=== PATIENT | female | born 1970 | race Caucasian/White ===

== ENCOUNTER 2017-08-16 00:29 | Inpatient (IN) | payer BC ==
[2017-08-16] MEDS ORDERED: Sodium Chloride 0.9% 10 ML Syringe FLUSH PRN (01:10)
[2017-08-16] MEDS ORDERED: Ondansetron 4 MG/2 ML SDV IVPUSH ONE ×2 (01:12→13:26)
[2017-08-16] MEDS ORDERED: HYDROmorphone 1 MG/ML Syringe IVPUSH ONE (01:12)
[2017-08-16] MEDS ORDERED: Sodium Chloride 0.9% 1,000 ML IV SCH ×2 (01:15→03:30)
--- NOTE | 2017-08-16 01:17 | EDM.PDOC ---
ED HPI GENERAL MEDICAL PROBLEM - General Chief Complaint: Abdominal Pain Stated Complaint: ABDOMINAL PAIN Time Seen by Provider: 08/16/17 01:05 Source of Information: Reports: Patient, Family, RN Notes Reviewed History Limitations: Reports: No Limitations - History of Present Illness INITIAL COMMENTS - FREE TEXT/NARRATIVE: 46-year-old female presents to the emergency department today with complaint of abdominal pain, she has a history of prior abdominal surgeries including a Hubert has had small bowel obstruction in the past. She states her pain has developed over the last 24 hours has progressively gotten worse is predominantly in the lower abdomen on the right side however she has passed some gas and stool. Nausea and waves no vomiting. No fevers, unfortunately this feels like prior bowel obstruction. Right Lower Quad Pain Score (Numeric/FACES): 6 - Related Data Allergies Allergy/AdvReac Type Severity Reaction Status Date / Time aspirin Allergy Intermediate Hives Verified 08/16/17 00:42 hydrocodone bitartrate Allergy Intermediate Itching Verified 08/16/17 00:42 [From Vicodin] Penicillins Allergy Unknown Rash Verified 08/16/17 00:42 adhesive Allergy Rash Verified 08/16/17 00:42 morphine AdvReac Intermediate Nausea Verified 08/16/17 00:42 Home Meds: Home Meds LORazepam [Ativan] 1 mg PO Q6H PRN 07/16/13 [History] Hydrochlorothiazide 25 mg PO DAILY PRN 02/20/14 [History] *Plexus 1 tab PO DAILY 02/18/16 [History] Docusate Sodium [Colace] 100 mg PO BID cap 02/26/16 [Rx] carBAMazepine [Carbamazepine ER] 100 mg PO BID 08/16/17 [History] Past Medical History Gastrointestinal History: Reports: Bowel Obstruction, GERD, Other (See Below) Other Gastrointestinal History: ileus [employer] AND [employer]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 Denies: None Other Hematologic History: JKA antibody Dermatologic History: Reports: Other (See Below) Other Dermatologic History: rosacea - Infectious Disease History Infectious Disease History: Reports: Chicken Pox, Influenza - Past Surgical History GI Surgical History: Reports: Cholecystectomy, Colon, Hubert Fundoplication, Other (See Below) Other GI Surgeries/Procedures: Resection times two Female Surgical History: Reports: Hysterectomy, Other (See Below) Neurological Surgical History: Reports: Discectomy, Laminectomy, Lumbar Spine Social & Family History - Tobacco Use Smoking Status *Q: Light Tobacco Smoker Years of Tobacco use: 28 Packs/Tins Daily: 0.5 Used Tobacco, but Quit: No Month Tobacco Last Used: February Second Hand Smoke Exposure: Yes - Caffeine Use Caffeine Use: Reports: None - Alcohol Use Days Per Week of Alcohol Use: 1 Number of Drinks Per Day: 2 Total Drinks Per Week: 2 Date of Last Drink: 08/09/17 - Recreational Drug Use Recreational Drug Use: No ED ROS GENERAL - Review of Systems Review Of Systems: See Below Constitutional: Denies: Fever, Chills HEENT: Reports: No Symptoms Respiratory: Reports: No Symptoms Cardiovascular: Reports: No Symptoms GI/Abdominal: Reports: Abdominal Pain, Flatus, Nausea. Denies: Vomiting : Reports: No Symptoms Musculoskeletal: Reports: No Symptoms Skin: Reports: No Symptoms Neurological: Reports: No Symptoms Psychiatric: Reports: No Symptoms ED EXAM, GI/ABD - Physical Exam Exam: See Below Exam Limited By: No Limitations General Appearance: Alert, Mild Distress Eyes: Bilateral: Normal Appearance Head: Atraumatic, Normocephalic Respiratory/Chest: No Respiratory Distress, Lungs Clear, Normal Breath Sounds, No Accessory Muscle Use Cardiovascular: Regular Rate, Rhythm, No Murmur GI/Abdominal Exam: Normal Bowel Sounds, Soft, Tender, Other (Psoas sign, obturator sign, heeltap all negative) Course - Vital Signs Last Recorded V/S: Last Vital Signs Temp 96.7 F 08/16/17 00:36 Pulse 109 H 08/16/17 00:36 Resp 18 08/16/17 00:36 BP 151/88 H 08/16/17 00:36 Pulse Ox 95 08/16/17 00:36 - Orders/Labs/Meds Orders: Active Orders 24 hr Category Date Time Status Peripheral IV Care [RC] . DIRECTED Care 08/16/17 01:11 Active Abdomen Pelvis w Cont [CT] Urgent Exams 08/16/17 01:10 Taken Ertapenem [INVanz] Med 08/16/17 02:34 Once 1 gm IVPUSH ONETIME ONE Sodium Chloride 0.9% [Normal Saline] 1,000 ml Med 08/16/17 01:15 Active IV ASDIRECTED Sodium Chloride 0.9% [Saline Flush] Med 08/16/17 01:10 Active 10 ml FLUSH ASDIRECTED PRN Peripheral IV Insertion Adult [OM.PC] Urgent Oth 08/16/17 01:10 Ordered Medication Orders Ertapenem (Invanz) 1 gm IVPUSH ONETIME ONE Stop: 08/16/17 02:35 Sodium Chloride (Normal Saline) 1,000 mls @ 500 mls/hr IV ASDIRECTED ИВАН Last Admin: 08/16/17 01:54 Dose: 500 mls/hr Sodium Chloride (Saline Flush) 10 ml FLUSH ASDIRECTED PRN PRN Reason: Keep Vein Open Last Admin: 08/16/17 01:25 Dose: 10 ml Labs: Laboratory Tests 08/16/17 08/16/17 08/16/17 Range/Units 01:25 01:25 01:25 WBC 13.3 H (4.5-11.0) K/uL RBC 4.46 (3.30-5.50) M/uL Hgb 12.8 (12.0-15.0) g/dL Hct 38.6 (36.0-48.0) % MCV 87 (80-98) fL MCH 29 (27-31) pg MCHC 33 (32-36) % Plt Count 267 (150-400) K/uL Neut % (Auto) 67 H (36-66) % Lymph % (Auto) 25 (24-44) % [place] % (Auto) 8 H (2-6) % Eos % (Auto) 0 L (2-4) % Baso % (Auto) 0 (0-1) % Sodium 140 (140-148) mmol/L Potassium 3.8 (3.6-5.2) mmol/L Chloride 107 (100-108) mmol/L Carbon Dioxide 22 (21-32) mmol/L Anion Gap 10.6 (5.0-14.0) mmol/L BUN 6 L (7-18) mg/dL Creatinine 0.6 (0.6-1.0) mg/dL Est Cr Clr Drug Dosing 112.72 mL/min Estimated GFR (MDRD) > 60 (>60) Glucose 95 (74-106) mg/dL Lactic Acid 0.8 (0.4-2.0) mmol/L Calcium 8.3 L (8.5-10.1) mg/dL Total Bilirubin 0.4 D (0.2-1.0) mg/dL AST 13 L (15-37) U/L ALT 25 (12-78) U/L Alkaline Phosphatase 85 (46-116) U/L Total Protein 7.2 (6.4-8.2) g/dL Albumin 3.4 (3.4-5.0) g/dL Globulin 3.8 H (2.3-3.5) g/dL Albumin/Globulin Ratio 0.9 L (1.2-2.2) Lipase 103 (73-393) U/L Urine Color Urine Appearance Urine pH (4.5-8.0) Ur Specific [place] (1.008-1.030) Urine Protein (NEGATIVE) mg/dL Urine Glucose (UA) (NEGATIVE) mg/dL Urine Ketones (NEGATIVE) mg/dL Urine Occult Blood (NEGATIVE) Urine Nitrite (NEGATIVE) Urine Bilirubin (NEGATIVE) Urine Urobilinogen (NORMAL) mg/dL Ur Leukocyte Esterase (NEGATIVE) Urine RBC (0-5) Urine WBC (0-5) Ur Epithelial Cells Amorphous Sediment Urine Bacteria Urine Mucus 08/16/17 Range/Units 01:34 WBC (4.5-11.0) K/uL RBC (3.30-5.50) M/uL Hgb (12.0-15.0) g/dL Hct (36.0-48.0) % MCV (80-98) fL MCH (27-31) pg MCHC (32-36) % Plt Count (150-400) K/uL Neut % (Auto) (36-66) % Lymph % (Auto) (24-44) % [place] % (Auto) (2-6) % Eos % (Auto) (2-4) % Baso % (Auto) (0-1) % Sodium (140-148) mmol/L Potassium (3.6-5.2) mmol/L Chloride (100-108) mmol/L Carbon Dioxide (21-32) mmol/L Anion Gap (5.0-14.0) mmol/L BUN (7-18) mg/dL Creatinine (0.6-1.0) mg/dL Est Cr Clr Drug Dosing mL/min Estimated GFR (MDRD) (>60) Glucose (74-106) mg/dL Lactic Acid (0.4-2.0) mmol/L Calcium (8.5-10.1) mg/dL Total Bilirubin (0.2-1.0) mg/dL AST (15-37) U/L ALT (12-78) U/L Alkaline Phosphatase (46-116) U/L Total Protein (6.4-8.2) g/dL Albumin (3.4-5.0) g/dL Globulin (2.3-3.5) g/dL Albumin/Globulin Ratio (1.2-2.2) Lipase (73-393) U/L Urine Color Yellow Urine Appearance Slightly cloudy Urine pH 6.0 (4.5-8.0) Ur Specific [place] 1.015 (1.008-1.030) Urine Protein Negative (NEGATIVE) mg/dL Urine Glucose (UA) Normal (NEGATIVE) mg/dL Urine Ketones Negative (NEGATIVE) mg/dL Urine Occult Blood Negative (NEGATIVE) Urine Nitrite Negative (NEGATIVE) Urine Bilirubin Negative (NEGATIVE) Urine Urobilinogen Normal (NORMAL) mg/dL Ur Leukocyte Esterase Negative (NEGATIVE) Urine RBC Not seen (0-5) Urine WBC Not seen (0-5) Ur Epithelial Cells Rare Amorphous Sediment Not seen Urine Bacteria Not seen Urine Mucus Moderate Meds: Medications Generic Name Dose Route Start Last Admin Trade Name Freq PRN Reason Stop Dose Admin Ertapenem 1 gm 08/16/17 02:34 Invanz IVPUSH 08/16/17 02:35 ONETIME ONE Sodium Chloride 1,000 mls @ 500 mls/hr 08/16/17 01:15 08/16/17 01:54 Normal Saline IV 500 mls/hr ASDIRECTED ИВАН Administration Sodium Chloride 10 ml 08/16/17 01:10 08/16/17 01:25 Saline Flush FLUSH 10 ml ASDIRECTED PRN Administration Keep Vein Open Discontinued Medications Generic Name Dose Route Start Last Admin Trade Name Freq PRN Reason Stop Dose Admin Hydromorphone HCl 1 mg 08/16/17 01:12 Dilaudid IVPUSH 08/16/17 01:13 ONETIME ONE Sodium Chloride 85 mls @ 4 mls/sec 08/16/17 01:30 08/16/17 01:43 Normal Saline IV 08/16/17 01:31 4 mls/sec ASDIRECTED STA Administration Iopamidol 150 ml 08/16/17 01:30 08/16/17 01:43 Isovue-300 (61%) IV 08/16/17 01:31 150 ml . DIRECTED STA Administration Ondansetron HCl 4 mg 08/16/17 01:12 08/16/17 01:28 Zofran IVPUSH 08/16/17 01:13 4 mg ONETIME ONE Administration Departure - Departure Time of Disposition: 02:36 Disposition: Admitted As Inpatient 65 Condition: Good Clinical Impression: Appendicitis Qualifiers: Appendicitis type: acute appendicitis Acute appendicitis type: with localized peritonitis Qualified Code(s): K35.3 - Acute appendicitis with localized peritonitis - Discharge Information Referrals: Johnny Drake MD [Primary Care Provider] - Forms: ED Department Discharge - My Orders Last 24 Hours: My Active Orders 08/16/17 01:10 Abdomen Pelvis w Cont [CT] Urgent Sodium Chloride 0.9% [Saline Flush] 10 ml FLUSH ASDIRECTED PRN Peripheral IV Insertion Adult [OM.PC] Urgent 08/16/17 01:11 Peripheral IV Care [RC] . DIRECTED 08/16/17 01:15 Sodium Chloride 0.9% [Normal Saline] 1,000 ml IV ASDIRECTED 08/16/17 02:34 Ertapenem [INVanz] 1 gm IVPUSH ONETIME ONE - Assessment/Plan Last 24 Hours: My Active Orders 08/16/17 01:10 Abdomen Pelvis w Cont [CT] Urgent Sodium Chloride 0.9% [Saline Flush] 10 ml FLUSH ASDIRECTED PRN Peripheral IV Insertion Adult [OM.PC] Urgent 08/16/17 01:11 Peripheral IV Care [RC] . DIRECTED 08/16/17 01:15 Sodium Chloride 0.9% [Normal Saline] 1,000 ml IV ASDIRECTED 08/16/17 02:34 Ertapenem [INVanz] 1 gm IVPUSH ONETIME ONE Plan: Assessment Acuity = acute Site and laterality = appendicitis Etiology = unclear etiology Manifestations = none Location of injury = Home Lab values = WBC elevated at 13.3 consistent with leukocytosis, remainder CBC, CMP unremarkable urinalysis unremarkable, CT scan describes acute appendicitis Plan Called discussed case with Dr. Cleary surgeon applications engineering manager recommended 1 g Invanz now plan to admit to hospital surgical intervention for a.m. case This note was dictated using [employer] voice recognition software please call with any questions on syntax or betty.
[2017-08-16] MEDS ORDERED: Iopamidol 612 MG/ML 150 ML Bottle IV STA (01:30)
[2017-08-16] MEDS ORDERED: Ertapenem 1 GM Vial IVPUSH ONE (02:34)
[2017-08-16] MEDS ORDERED: Lactated Ringers 1,000 ML IV SCH (02:45)
[2017-08-16] MEDS ORDERED: Ertapenem 1 GM in Sodium Chloride 0.9% 100 ML IV ONE (02:45)
[2017-08-16] MEDS ORDERED: Ondansetron 4 MG/2 ML SDV IVPUSH PRN ×2 (03:24→15:01)
[2017-08-16] MEDS ORDERED: Scopolamine 1.5 MG Transdermal Patch TRDERM PRN (03:24)
[2017-08-16] MEDS ORDERED: Promethazine 25 MG in Sodium Chloride 0.9% 50 ML IV PRN (03:25)
[2017-08-16] MEDS ORDERED: diphenhydrAMINE 50 MG/ML SDV IVPUSH PRN (03:27)
[2017-08-16] MEDS ORDERED: diphenhydrAMINE 25 MG Cap PO PRN (03:28)
[2017-08-16] MEDS ORDERED: fentaNYL 100 MCG/2 ML SDV IVPUSH PRN (03:31)
--- NOTE | 2017-08-16 07:10 | PCM.HP ---
H&P History of Present Illness - General Date of Service: 08/16/17 Admit Problem/Dx: Admission Diagnosis/Problem Admission Diagnosis/Problem Appendicitis Source of Information: Patient History Limitations: Reports: No Limitations - History of Present Illness Initial Comments - Free Text/Narative: Alyx presented to the ED with a now 36 hour history of right lower quadrant abdominal pain. She is NPO for an Appendectomy. Onset of Symptoms: Reports: Gradual Duration of Symptoms: Reports: Hour(s): (36) Location: Reports: Abdomen (right lower quadrant ) Quality: Reports: Ache, Throbbing Improves with: Reports: Medication Worsens with: Reports: Movement Context: Reports: Sick Contact Associated Symptoms: Reports: No Other Symptoms Right Lower Quad Pain Score (Numeric/FACES): 6 - Related Data Allergies/Adverse Reactions: Allergies Allergy/AdvReac Type Severity Reaction Status Date / Time aspirin Allergy Intermediate Hives Verified 08/16/17 00:42 hydrocodone bitartrate Allergy Intermediate Itching Verified 08/16/17 00:42 [From Vicodin] Penicillins Allergy Unknown Rash Verified 08/16/17 00:42 adhesive Allergy Rash Verified 08/16/17 00:42 morphine AdvReac Intermediate Nausea Verified 08/16/17 00:42 Home Medications: Home Meds LORazepam [Ativan] 1 mg PO Q6H PRN 07/16/13 [History] Hydrochlorothiazide 25 mg PO DAILY PRN 02/20/14 [History] *Plexus 1 tab PO DAILY 02/18/16 [History] Docusate Sodium [Colace] 100 mg PO BID cap 02/26/16 [Rx] carBAMazepine [Carbamazepine ER] 100 mg PO BID 08/16/17 [History] Past Medical History HEENT History: Reports: Other (See Below) Other HEENT History: trigeminal neuralgia (left side of face numb) Cardiovascular History: Reports: Other (See Below) Other Cardiovascular History: history of PVC's Gastrointestinal History: Reports: Bowel Obstruction, GERD, Other (See Below) Other Gastrointestinal History: ileus 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, Other OB/BYN History: hysterectomy, heavy bleeding Musculoskeletal History: Reports: Fracture Neurological History: Reports: Other (See Below) Other Neuro History: trigeminal Endocrine/Metabolic History: Reports: Obesity/BMI 30+ Other Endocrine/Metabolic History: Gestational DM Hematologic History: Reports: Other (See Below) Other Hematologic History: JKA antibody Dermatologic History: Reports: Other (See Below) Other Dermatologic History: rosacea - Infectious Disease History Infectious Disease History: Reports: Chicken Pox, Influenza - Past Surgical History GI Surgical History: Reports: Cholecystectomy, Colon, Hubert Fundoplication, Other (See Below) Other GI Surgeries/Procedures: Resection times two Female Surgical History: Reports: Hysterectomy, Other (See Below) Neurological Surgical History: Reports: Discectomy, Laminectomy, Lumbar Spine Social & Family History - Tobacco Use Smoking Status *Q: Current Every Day Smoker Years of Tobacco use: 28 Packs/Tins Daily: 0.5 Used Tobacco, but Quit: No Month Tobacco Last Used: February Hand Smoke Exposure: Yes - Caffeine Use Caffeine Use: Reports: None - Alcohol Use Days Per Week of Alcohol Use: 1 Number of Drinks Per Day: 2 Total Drinks Per Week: 2 Date of Last Drink: 08/09/17 - Recreational Drug Use Recreational Drug Use: No H&P Review of Systems - Review of Systems: Review Of Systems: See Below General: Reports: Fatigue HEENT: Reports: No Symptoms Pulmonary: Reports: No Symptoms Cardiovascular: Reports: No Symptoms Gastrointestinal: Reports: Abdominal Pain (see chief complaint) Genitourinary: Reports: No Symptoms Musculoskeletal: Reports: No Symptoms Skin: Reports: No Symptoms Psychiatric: Reports: No Symptoms Neurological: Reports: No Symptoms Hematologic/Lymphatic: Reports: No Symptoms Immunologic: Reports: No Symptoms Exam - Exam Exam: See Below - Vital Signs Vital Signs: Last Vital Signs Temp 97.6 F 08/16/17 03:20 Pulse 92 08/16/17 03:20 Resp 20 08/16/17 03:20 BP 127/84 08/16/17 03:20 Pulse Ox 96 08/16/17 03:20 Weight: 250 lb - Exam Quality Assessment: DVT Prophylaxis General: Alert, Oriented, Moderate Distress HEENT: PERRLA Neck: Supple, Trachea Midline Lungs: Clear to Auscultation, Normal Respiratory Effort Cardiovascular: Regular Rate, Regular Rhythm GI/Abdominal Exam: Soft, No Distention, Guarding (RLQ) (Female) Exam: Deferred Rectal (Female) Exam: Deferred Back Exam: Normal Inspection, Full Range of Motion Extremities: Normal Inspection, Normal Range of Motion, No Pedal Edema Skin: Warm, Dry, Intact Neurological: Cranial Nerves Intact, Reflexes Equal Bilateral Neuro Extensive - Mental Status: Alert, Normal Mood/Affect Neuro Extensive - Motor, Sensory, Reflexes: CN II-XII Intact Psychiatric: Alert, Normal Affect, Normal Mood - Patient Data Result Diagrams: 08/16/17 01:25 08/16/17 01:25 *Q Meaningful Use (ADM) - VTE *Q VTE Criteria *Q: - Stroke *Q Stroke Criteria *Q: - AMI *Q AMI Criteria *Q: - Problem List (1) Appendicitis SNOMED Code(s): 53596526 ICD Code: K37 - UNSPECIFIED APPENDICITIS Status: Acute Current Visit: Yes Qualifiers: Appendicitis type: acute appendicitis Acute appendicitis type: with localized peritonitis Qualified Code(s): K35.3 - Acute appendicitis with localized peritonitis Problem List Initiated/Reviewed/Updated: Yes Orders Last 24hrs: Active Orders 24 hr Category Date Time Status Activity as Tolerated [RC] .Routine Care 08/16/17 03:22 Active Communication Order [RC] STAT Care 08/16/17 06:57 Active May Shower [RC] ASDIRECTED Care 08/16/17 06:55 Active Notify Provider Consults [RC] ASDIRECTED Care 08/16/17 06:12 Active Verify Patient Consent Obtain [RC] ASDIRECTED Care 08/16/17 06:53 Active Consult to Physician [CONS] Routine Cons 08/16/17 06:10 Ordered Aztreonam [Azactam] 1 gm Med 08/16/17 07:00 Active Sodium Chloride 0.9% [Normal Saline] 50 ml IV Q8H Non-Formulary Medication [NF Drug] Med 08/16/17 09:00 Active 1 each .XX DAILY Ondansetron [Zofran] Med 08/16/17 03:24 Active 4 mg IVPUSH Q8H PRN Promethazine [Phenergan] 25 mg Med 08/16/17 03:25 Active Sodium Chloride 0.9% [Normal Saline] 50 ml IV Q8H Scopolamine [Transderm-Scop] Med 08/16/17 03:24 Active 1.5 mg TRDERM Q72H PRN Sodium Chloride 0.9% [Normal Saline] 1,000 ml Med 08/16/17 03:30 Active IV ASDIRECTED carBAMazepine [Carbamazepine ER] Med 08/16/17 09:00 Ordered 100 mg PO BID diphenhydrAMINE [Benadryl] Med 08/16/17 03:27 Active 25 - 50 mg IVPUSH Q4H PRN diphenhydrAMINE [Benadryl] Med 08/16/17 03:28 Active 25 - 50 mg PO Q4H PRN fentaNYL [Sublimaze] Med 08/16/17 03:31 Active 10 - 30 mcg IVPUSH Q1H PRN SCD [Sequential Compression Device] [OM.PC] Routine Oth 08/16/17 03:22 Ordered Medication Orders Diphenhydramine HCl (Benadryl) 25 - 50 mg IVPUSH Q4H PRN PRN Reason: Itching Diphenhydramine HCl (Benadryl) 25 - 50 mg PO Q4H PRN PRN Reason: Itching Fentanyl (Sublimaze) 10 - 30 mcg IVPUSH Q1H PRN PRN Reason: Pain (severe 7-10) Lactated Ringer's (Ringers, Lactated) 1,000 mls @ 125 mls/hr IV ASDIRECTED ИВАН Sodium Chloride (Normal Saline) 1,000 mls @ 125 mls/hr IV ASDIRECTED ИВАН Last Admin: 08/16/17 04:01 Dose: 125 mls/hr Promethazine HCl 25 mg/ Sodium (Chloride) 51 mls @ 200 mls/hr IV Q8H PRN PRN Reason: Nausea/Vomiting Aztreonam 1 gm/ Sodium (Chloride) 50 mls @ 100 mls/hr IV Q8H [facility] Check Scopolamine (Patch Daily) 1 each .XX DAILY [facility] Non-Formulary Medication (Carbamazepine [Carbamazepine Er]) 100 mg PO BID ИВАН Ondansetron HCl (Zofran) 4 mg IVPUSH Q8H PRN PRN Reason: Nausea/Vomiting Scopolamine (Transderm-Scop) 1.5 mg TRDERM Q72H PRN PRN Reason: Nausea Sodium Chloride (Saline Flush) 10 ml FLUSH ASDIRECTED PRN PRN Reason: Keep Vein Open Last Admin: 08/16/17 01:25 Dose: 10 ml Assessment/Plan Comment:: Assessment: Acute Appendicitis Plan: See SULEMA Borges
[2017-08-16] MEDS ORDERED: Aztreonam/Dextrose-Water 1 GM in Premix Bag 1 BAG IV SCH ×2 (07:30→08:00)
[2017-08-16] MEDS ORDERED: HYDROmorphone/Normal Saline 15 MG/30 ML PCA IV PRN (08:44)
[2017-08-16] MEDS ORDERED: Naloxone 0.4 MG/ML SDV IV PRN (08:44)
[2017-08-16] MEDS ORDERED: CARBAMAZEPINE 100 MG PO SCH (09:00)
[2017-08-16] MEDS: carBAMazepine 100 MG Cap.ER PO SCH ×2 (09:23→20:47)
[2017-08-16] MEDS: CHECK SCOPOLAMINE PATCH DAILY SCH (09:42)
[2017-08-16] MEDS ORDERED: Neostigmine Methylsulfate 1 MG/ML 5 ML Syringe ONE (10:03)
[2017-08-16] MEDS ORDERED: fentaNYL 250 MCG/5 ML SDV ONE (10:03)
[2017-08-16] MEDS ORDERED: Ondansetron 4 MG/2 ML SDV ONE (10:03)
[2017-08-16] MEDS ORDERED: Dexamethasone 4 MG/ML SDV ONE (10:03)
[2017-08-16] MEDS ORDERED: Rocuronium 50 MG/5 ML Vial ONE (10:03)
[2017-08-16] MEDS ORDERED: Midazolam 1 MG/ML 2 ML SDV ONE (10:03)
[2017-08-16] MEDS ORDERED: Propofol 200 MG/20 ML SDV ONE (10:03)
[2017-08-16] MEDS ORDERED: Succinylcholine/Normal Saline 200 MG/10 ML Syringe ONE (10:03)
[2017-08-16] MEDS ORDERED: Bupivacaine 0.5%/EPINEPHrine 1:200,000 50 ML MDV ONE (11:35)
[2017-08-16] MEDS ORDERED: Lidocaine 2% 100 MG/5 ML Syringe IVPUSH ONE (12:00)
[2017-08-16] MEDS ORDERED: Ketamine 500 MG/5 ML MDV IV SCH (12:00)
[2017-08-16] MEDS ORDERED: Ropivacaine 56 ML, Dexamethasone 8 MG, EPINEPHrine 0.4 MG, Sodium Chloride 0.9% 21.6 ML NERVRT SCH ×4 (12:00)
[2017-08-16] MEDS ORDERED: Lactated Ringers 1,000 ML ONE (12:03)
[2017-08-16] MEDS ORDERED: Meropenem 500 MG SDV ONE (12:52)
[2017-08-16] MEDS ORDERED: fentaNYL 100 MCG/2 ML SDV ONE (13:11)
[2017-08-16] MEDS ORDERED: Meropenem 500 MG in Sodium Chloride 0.9% 50 ML IV ONE (13:15)
[2017-08-16] MEDS ORDERED: hydrOXYzine HCl 100 MG/2 ML SDV IM ONE (13:26)
[2017-08-16] MEDS: Lidocaine 0.4%/D5W 2 GM/500 ML BAG IV SCH (14:00)
[2017-08-16] MEDS: Dextrose 5%-Lactated Ringers 1,000 ML IV SCH ×2 (14:10→20:49)
[2017-08-16] MEDS: Aztreonam/Dextrose-Water 1 GM in Premix Bag 1 BAG IV SCH (17:40)
[2017-08-16] MEDS: Meropenem 500 MG in Sodium Chloride 0.9% 50 ML IV SCH (20:45)
[2017-08-16] MEDS ORDERED: Docusate Sodium 100 MG Cap PO PRN (23:25)
[2017-08-17] MEDS: Meropenem 500 MG in Sodium Chloride 0.9% 50 ML IV SCH ×4 (01:17→20:23)
[2017-08-17] MEDS: Aztreonam/Dextrose-Water 1 GM in Premix Bag 1 BAG IV SCH ×3 (02:03→17:16)
[2017-08-17] MEDS: Lidocaine 0.4%/D5W 2 GM/500 ML BAG IV SCH ×2 (03:23→05:25)
[2017-08-17] MEDS: Docusate Sodium 100 MG Cap PO SCH ×2 (08:04→20:24)
[2017-08-17] MEDS: CHECK SCOPOLAMINE PATCH DAILY SCH (08:54)
[2017-08-17] MEDS: carBAMazepine 100 MG Cap.ER PO SCH ×2 (08:57→20:24)
--- NOTE | 2017-08-17 09:29 | PN ---
DATE OF SERVICE: 08/17/2017 SUBJECTIVE: Alyx is postop day #1. She reports her pain is controlled. Has been up, ambulating. Remains to be n.p.o. REVIEW OF SYSTEMS: Remainder of review of systems negative for any pertinent positives and negatives. OBJECTIVE: GENERAL: Alyx Warner is a 46-year-old female, alert, orientated. Face is flushed. VITAL SIGNS: TPR 96.6, 60, 16. Blood pressure 111/73. HEENT: Negative. NECK: Supple. HEART: Regular rate and rhythm. LUNGS: Clear. ABDOMEN: Dressings dry and intact. Abdominal binder is on. EXTREMITIES: SCDs are on and there is no peripheral edema. ASSESSMENT: Laparoscopic appendectomy. PLAN: 1. Discontinue Olguin catheter. 2. Decrease IV to 100 mL per hour. 3. Colace 100 mg b.i.d. 4. Full liquid diet. 5. Dressing off, may shower. 6. Good pulmonary toilet. 7. We will evaluate p.r.n. or in the a.m. Genny Boyd PA-C /[id number]
[2017-08-17] MEDS: Dextrose 5%-Lactated Ringers 1,000 ML IV SCH (17:16)
[2017-08-18] MEDS: Aztreonam/Dextrose-Water 1 GM in Premix Bag 1 BAG IV SCH (02:35)
[2017-08-18] MEDS: Meropenem 500 MG in Sodium Chloride 0.9% 50 ML IV SCH ×2 (02:35→08:30)
[2017-08-18] MEDS: Dextrose 5%-Lactated Ringers 1,000 ML IV SCH (05:11)
[2017-08-18] MEDS ORDERED: Magnesium Hydroxide 400 MG/5 ML Susp 30 ML Cup PO ONE (08:00)
[2017-08-18] MEDS: HYDROmorphone 2 MG Tab PO PRN ×2 (08:11→18:08)
[2017-08-18] MEDS: carBAMazepine 100 MG Cap.ER PO SCH ×2 (08:14→20:15)
[2017-08-18] MEDS: CHECK SCOPOLAMINE PATCH DAILY SCH (08:14)
[2017-08-18] MEDS: Docusate Sodium 100 MG Cap PO SCH ×2 (08:15→20:15)
--- NOTE | 2017-08-18 09:00 | PN ---
DATE OF SERVICE: 08/18/2017 HISTORY OF PRESENT ILLNESS: Alyx is postoperative day 2 following a laparoscopic appendectomy. She has been up ambulating. Vital signs have been stable. Oral intake on a full liquid diet 2560. Urine output 2100, HANNAH drain put out 135 mL of a pink serosanguineous drainage. During the night, she will desaturate down to 81% and will maintain better oxygenation at 94 to 95 with 1 L of nasal cannula. Nursing staff questioning sleep apnea. REVIEW OF SYSTEMS: Remainder of review of systems negative for any pertinent positives and negatives. She is passing flatus. Concerns of having no bowel movement. OBJECTIVE: GENERAL: Alyx Warner is a pleasant 46-year-old female, alert and orientated. VITAL SIGNS: TPR 96.3, 74, 16, blood pressure 113/78. HEENT: Negative. NECK: Supple. HEART: Regular rate and rhythm. LUNGS: Clear. ABDOMEN: Dressing is dry and intact. Abdominal binder is on and HANNAH drain is intact and drainage as above. EXTREMITIES: SCDs have been on and no peripheral edema. ASSESSMENT: Diagnostic laparoscopy with appendectomy and drainage of periappendiceal abscess and excision of inflamed, retracted appendix, epiploica, or perforated appendicitis with periappendiceal abscess and infected appendix epiploica. Date of surgery 08/16/2017. Surgeon, Malcom Prado MD. PLAN: Rx milk of magnesia 30 mL now and followed in 1 hour by bisacodyl 20 mg, then tonight start bisacodyl 10 mg p.o. b.i.d. 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 Dilaudid 2 mg 1 to 2 every 4 hours p.r.n. pain. Good pulmonary toilet. We will evaluate p.r.n. or in the a.m. Genny Boyd PA-C /[id number]
[2017-08-18] MEDS: Bisacodyl 5 MG Tab PO SCH ×2 (09:13→20:30)
[2017-08-18] MEDS ORDERED: Amoxicillin/Clavulanate K 875-125 MG Tab PO SCH (10:00)
[2017-08-18] MEDS: Doxycycline 100 MG Cap PO SCH ×2 (11:12→20:15)
[2017-08-19] MEDS: HYDROmorphone 2 MG Tab PO PRN (07:33)
[2017-08-19] MEDS: Docusate Sodium 100 MG Cap PO SCH (09:33)
[2017-08-19] MEDS: CHECK SCOPOLAMINE PATCH DAILY SCH (09:33)
[2017-08-19] MEDS: carBAMazepine 100 MG Cap.ER PO SCH (09:34)
[2017-08-19] MEDS: Doxycycline 100 MG Cap PO SCH (09:34)
[2017-08-19] MEDS: Bisacodyl 5 MG Tab PO SCH (09:34)
[2017-08-19 11:49] VITALS: BP 105/75
--- NOTE | 2017-08-20 03:45 | DISCH ---
ADMISSION DIAGNOSES: 1. Acute appendicitis. 2. History of bowel obstruction. 3. Trigeminal neuralgia. 4. Anxiety. DISCHARGE DIAGNOSES: Diagnostic laparoscopy with appendectomy and drainage of periappendiceal abscess and excision of inflamed retracted appendix, appendix epiploica and perforated appendicitis with periappendiceal abscess and infected appendiceal epiploica. DATE OF SURGERY: 08/16/2017. SURGEON: Malcom Prado MD. HISTORY: Alyx Warner is a pleasant 46-year-old female, who had a month long history of right lower quadrant abdominal pain that would come and go and became more intense in the past 36 hours. She presented to the emergency room. After preoperative evaluation and discussion of possible risks and possible complications, she wished to proceed with surgical procedure. HOSPITAL COURSE: Alyx had her surgery on 08/16/2017. She had no operative complications. On postop day #1, she was advanced to a full liquid diet, she continued the PUPPET MASTER, and she was given stool softeners and her home oral Plexus. On postop day #3, she did have a bowel movement. IV infiltrated so she was changed to oral pain medication, doxycycline 100 mg b.i.d. Her activity was good, pain was managed, vital signs stable, and she was able to be discharged to home on postop day #3. PHYSICAL EXAMINATION: GENERAL: Alyx Warner is a 46-year-old female. VITAL SIGNS: Height is 5 feet 6 inches. Weight is 260 pounds. T/P/R 97.4/76/16. Blood pressure 127/82. HEENT: Negative. NECK: Supple. HEART: Regular rate and rhythm. LUNGS: Clear. ABDOMEN: Sutures look good, 4x4s over HANNAH drain. Abdominal binder is on. EXTREMITIES: Without peripheral edema. DISPOSITION: Discharged to home. CONDITION: Stable and improving. FOLLOWUP APPOINTMENT: Genny Boyd PA-C, on 08/25/2017 at 9:15 a.m. HOME MEDICATIONS: Doxycycline 100 mg b.i.d., #14; Dilaudid 2 mg 1 to 2 every 4 hours p.r.n. pain, #40. She is to resume her home medications of Colace 100 mg twice daily, Plexus 1 tablet oral daily, hydrochlorothiazide 25 mg oral daily, Ativan 1 mg oral q.6 hours p.r.n. nausea, and carbamazepine ER 100 mg twice daily. DISCHARGE INSTRUCTIONS: 1. Diet after discharge: Usual diet as tolerated. Drink 8 to 10 glasses of water a day. 2. Activity: No lifting greater than 10 pounds for 2 weeks. 3. Driving: Do not drive on narcotic medication. 4. Shower/Bathing: May shower. Notify provider if any fever, increased pain, nausea, or vomiting. Keep site clean and dry. Wear abdominal binder for 2 weeks and then as tolerated. SPECIAL INSTRUCTIONS: Use incentive spirometer 10 times every hour while awake for 1 week.
--- NOTE | 2017-08-24 08:51 | OR ---
DATE OF PROCEDURE: 08/16/2017 PREOPERATIVE DIAGNOSIS: Acute appendicitis. POSTOPERATIVE DIAGNOSES: Perforated appendicitis with periappendiceal abscess and inflammation and partial infarction of adjacent appendix epiploica. OPERATIVE PROCEDURES: Diagnostic laparoscopy with: 1. Appendectomy with drainage of periappendiceal abscess (15512). 2. Excision of inflamed and partially infarcted appendix epiploica (10727). ANESTHESIA: General. TRANSONIC ENGINEER: Genny Boyd PA-C and LADAN Ordaz3. INDICATIONS FOR PROCEDURE: This is a 46-year-old presenting with roughly a 4- to 5-day history of lower abdominal pain. She was admitted last night with CT scan findings suggestive of an acute appendicitis and a clinical presentation consistent with that as well. Our plan is to proceed with a diagnostic laparoscopy, laparotomy if necessary, and probable appendectomy with additional procedures as indicated. The patient is status post previous laparotomy with extensive bowel dissection. The plan will be to attempt to approach this abdomen via laparoscopic approach. She is aware that there is at least a 50:50 chance that we will need to go with an open approach, and potential risks per se, including bleeding, infection, injury to underlying viscera, possible leaks from GI tract closures, possible need for bowel resection beyond the extent of typical appendicitis were all reviewed, and the patient wishes to proceed. DETAILS OF PROCEDURE: The patient was taken to the operating room and after general endotracheal anesthesia was induced, a Olguin catheter was inserted and the abdomen prepped and draped. In the left lower quadrant, which was an area anticipated to likely have a low likelihood of adhesions, a transverse incision was made. The peritoneal cavity entered under direct vision with an Optiview trocar and inflated to 15 mmHg pressure with CO2. This was indeed an area that did not have any significant adhesions. The patient was noted to have, in her midline incision, which was a little bit above and a little bit below the umbilicus, an area of small bowel adhesions quite directly adherent to the abdominal wall. We were able to bring the laparoscope inferior to that, however, and there was a broad area on the right side of the abdomen that was likewise free of adhesions. Two 12 mm trocars were placed on that side, and it was at that point that the base of the cecum was identified. This was mobilized upward. A periappendiceal abscess was encountered, which was drained and cultures sent. The patient was noted to have appendicitis with the adjacent appendix epiploica near the area of the ileocecal valve initially intensely involved in the inflammation, as well as portion of the abscess wall. This appeared to be partially necrotic. Given this, the appendix epiploica was then excised by means of Harmonic scalpel and sent as a separate specimen. The appendix was eventually mobilized up to the point of the junction of the appendix and cecum, and to that point, the mesoappendix had been divided with Harmonic scalpel, and the appendix/cecal junction was then divided with a DAGO purple load, and the appendix specimen was delivered from the field through the lower of the right-sided abdominal trocars. The appendectomy stump appeared to be satisfactorily closed at the staple line. The area was then irrigated with meropenem-containing saline solution. Some fibrin sealant was then placed over the appendectomy staple line and some omentum placed over that area of the fibrin sealant and held in position for a minute, which allowed adequate fixation of that area to the fibrin sealant and adjacent staple line. At this point, no further problems were noted. A Sohail-Randall drain was taken out through the right lateral trocar site and positioned across the area of the appendectomy stump and from there into the pelvis. The trocars were sequentially removed. The fascia at the 12 mm sites was each closed with 0 Vicryl stitch. There was no gross contamination of the abdominal wall as the specimen was delivered through the trocar site, and given this, the skin at each incision was closed with some 4-0 Vicryl skin stitch. The patient was taken to the recovery room in satisfactory condition. Physician orthodontist assistant, Genny Boyd, played an essential role in assisting in this case, helping to position the patient, retract structures as needed, as well as suturing and cutting sutures when indicated. Her presence improved patient safety and decreased the operative time. Malcom Prado MD /[id number]
== END 2017-08-19 13:00 | disposition home or self-care (01) | DRG 225 ==
LOC: JP.ED 00:29 → JP.MS 02:40 → OBSVTOIN 13:10
PROVIDERS: ADMIT Surgery; ATTEND Surgery
PROC: 0DTJ4ZZ Resection of Appendix, Percutaneous Endoscopic Approach (ICD-10-PCS; principal; 2017-08-16)
PROC: 0DBW0ZX Excision of Peritoneum, Open Approach, Diagnostic (ICD-10-PCS; 2017-08-16)
PROC: 0D9 Gastrointestinal System, Drainage (ICD-10-PCS; 2017-08-16)
DX: K35.3 Acute appendicitis with localized peritonitis (principal); F17.210 Nicotine dependence, cigarettes, uncomplicated; Z86.32 Personal history of gestational diabetes; G50.0 Trigeminal neuralgia; Z88.6 Allergy status to analgesic agent; Z88.5 Allergy status to narcotic agent; Z88.0 Allergy status to penicillin; Z91.048 Other nonmedicinal substance allergy status; K63.89 Other specified diseases of intestine
CPT/HCPCS: 36415; 74177; 80053; 81001; 83605; 83690; 85025; 88304; 94762; 96361; 96365; 96375; 96376; 99285-25; A9270-GY; G0378; J0171; J1100; J1170; J1200; J1335; J2001; J2185; J2250; J2405; J2704; J2795; J3010; J3410; J3490; J7030; J7040; J7042; J7050; J7120

== ENCOUNTER 2020-04-06 14:55 | Observation (INO) | payer BC ==
[~2020-04-06 14:55] MED LIST: Iopamidol 612 MG/ML 500 ML Multipack Bottle IV ONE
[2020-04-06] MEDS ORDERED: Sodium Chloride 0.9% 10 ML Syringe FLUSH ONE (15:31)
--- NOTE | 2020-04-06 15:43 | EDM.PDOC ---
ED HPI GENERAL MEDICAL PROBLEM - General Chief Complaint: Abdominal Pain Stated Complaint: ABD PAIN Time Seen by Provider: 04/06/20 15:41 Source of Information: Reports: Patient, Family, RN Notes Reviewed History Limitations: Reports: No Limitations - History of Present Illness INITIAL COMMENTS - FREE TEXT/NARRATIVE: 49-year-old female presents emergency department with a complaint of abdominal pain, she states that the abdominal pain for about a week does have a history of extensive abdominal surgeries with small bowel obstruction she has been keeping herself on clear liquids at home she still passing gas had a bowel movement this morning feels nauseated no fevers no shortness of breath or chest pain - Related Data Allergies Allergy/AdvReac Type Severity Reaction Status Date / Time aspirin Allergy Intermediate Hives Verified 04/06/20 15:00 hydrocodone bitartrate Allergy Intermediate Itching Verified 04/06/20 15:00 [From Vicodin] Penicillins Allergy Unknown Rash Verified 04/06/20 15:00 adhesive Allergy Rash Verified 04/06/20 15:00 morphine AdvReac Intermediate Nausea Verified 04/06/20 15:00 Home Meds: Home Meds carBAMazepine [Carbamazepine ER] 100 mg PO BID 08/16/17 [History] Past Medical History HEENT History: Reports: Other (See Below) Other HEENT History: trigeminal neuralgia (left side of face numb) Cardiovascular History: Reports: Other (See Below) Other Cardiovascular History: history of PVC's Gastrointestinal History: Reports: Bowel Obstruction, GERD, Other (See Below) Other Gastrointestinal History: ileus [employer]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: Dysfunctional Uterine Bleeding, Other [employer]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, heavy bleeding Musculoskeletal History: Reports: Fracture Neurological History: Reports: Other (See Below) Other Neuro History: trigeminal Endocrine/Metabolic History: Reports: Obesity/BMI 30+ Other Endocrine/Metabolic History: Gestational DM Hematologic History: Reports: Other (See Below) Other Hematologic History: JKA antibody Dermatologic History: Reports: Other (See Below) Other Dermatologic History: rosacea - Infectious Disease History Infectious Disease History: Reports: Chicken Pox, Influenza - Past Surgical History GI Surgical History: Reports: Cholecystectomy, Colon, Hubert Fundoplication, Other (See Below) Other GI Surgeries/Procedures: Resection times two Female Surgical History: Reports: Hysterectomy, Other (See Below) Neurological Surgical History: Reports: Discectomy, Laminectomy, Lumbar Spine Social & Family History - Caffeine Use Caffeine Use: Reports: None ED ROS GENERAL - Review of Systems Review Of Systems: See Below Constitutional: Denies: Fever, Chills HEENT: Reports: No Symptoms Respiratory: Reports: No Symptoms Cardiovascular: Reports: No Symptoms GI/Abdominal: Reports: Abdominal Pain, Flatus, Nausea. Denies: Constipation, Diarrhea, Vomiting : Reports: No Symptoms ED EXAM, GI/ABD - Physical Exam Exam: See Below Exam Limited By: No Limitations General Appearance: Alert, WD/WN, No Apparent Distress Respiratory/Chest: No Respiratory Distress GI/Abdominal Exam: Soft, No Distention, Tender (Epigastric periumbilical region) Course - Vital Signs Last Recorded V/S: Last Vital Signs Temp Pulse 72 04/06/20 15:34 Resp 16 04/06/20 15:34 BP 138/79 04/06/20 15:34 Pulse Ox 98 04/06/20 15:34 - Orders/Labs/Meds Orders: Active Orders 24 hr Category Date Time Status Abdomen Pelvis w Cont [CT] Stat Exams 04/06/20 13:10 Taken Sodium Chloride 0.9% [Normal Saline] 100 ml Med 04/06/20 15:45 Active IV ASDIRECTED Medication Orders Sodium Chloride (Normal Saline) 100 mls @ 3 mls/sec IV ASDIRECTED ИВАН Labs: Laboratory Tests 04/06/20 04/06/20 04/06/20 Range/Units 14:00 14:00 14:00 WBC 9.5 (4.5-11.0) K/uL RBC 4.64 (3.30-5.50) M/uL Hgb 13.2 (12.0-15.0) g/dL Hct 39.6 (36.0-48.0) % MCV 85 (80-98) fL MCH 28 (27-31) pg MCHC 33 (32-36) % Plt Count 267 (150-400) K/uL Neut % (Auto) 61 (36-66) % Lymph % (Auto) 29 (24-44) % Dale % (Auto) 8 H (2-6) % Eos % (Auto) 1 L (2-4) % Baso % (Auto) 1 (0-1) % Sodium 138 L (140-148) mmol/L Potassium 4.0 (3.6-5.2) mmol/L Chloride 104 (100-108) mmol/L Carbon Dioxide 25 (21-32) mmol/L Anion Gap 13.0 (5.0-14.0) mmol/L BUN 6 L (7-18) mg/dL Creatinine 0.8 (0.6-1.0) mg/dL Est Cr Clr Drug Dosing 81.81 mL/min Estimated GFR (MDRD) > 60 (>60) Glucose 106 (74-106) mg/dL Lactic Acid 1.2 (0.4-2.0) mmol/L Calcium 9.1 (8.5-10.1) mg/dL Total Bilirubin 0.3 (0.2-1.0) mg/dL AST 16 (15-37) U/L ALT 40 (12-78) U/L Alkaline Phosphatase 79 (46-116) U/L Total Protein 7.7 (6.4-8.2) g/dL Albumin 3.7 (3.4-5.0) g/dL Globulin 4.0 H (2.3-3.5) g/dL Albumin/Globulin Ratio 0.9 L (1.2-2.2) Meds: Medications Generic Name Dose Route Start Last Admin Trade Name Freq PRN Reason Stop Dose Admin Sodium Chloride 100 mls @ 3 mls/sec 04/06/20 15:45 Normal Saline IV ASDIRECTED ИВАН Discontinued Medications Generic Name Dose Route Start Last Admin Trade Name Freq PRN Reason Stop Dose Admin Iopamidol 100 ml 04/06/20 13:30 Isovue-300 (61%) IV 04/06/20 13:31 ONETIME ONE Sodium Chloride 10 ml 04/06/20 15:31 Saline Flush FLUSH 04/06/20 15:32 ONETIME ONE Departure - Departure Time of Disposition: 15:42 Disposition: Admitted As Inpatient 66 Condition: Fair Clinical Impression: Abdominal pain Qualifiers: Abdominal location: generalized Qualified Code(s): R10.84 - Generalized abdominal pain - Discharge Information Referrals: PCP,None [Primary Care Provider] - Sepsis Event Note (ED) - Focused Exam Vital Signs: Vital Signs Pulse Resp BP Pulse Ox 04/06/20 15:34 72 16 138/79 98 - My Orders Last 24 Hours: My Active Orders 04/06/20 13:10 Abdomen Pelvis w Cont [CT] Stat 10/17/20 15:45 Sodium Chloride 0.9% [Normal Saline] 100 ml IV ASDIRECTED - Assessment/Plan Last 24 Hours: My Active Orders 04/06/20 13:10 Abdomen Pelvis w Cont [CT] Stat 04/06/20 15:45 Sodium Chloride 0.9% [Normal Saline] 100 ml IV ASDIRECTED Plan: Assessment Acuity = acute Site and laterality = abdominal pain Etiology = unknown Manifestations = none Location of injury = Home Lab values = CBC, CMP, lactic acid within normal limits CT scan describes no acute process Plan Call discussed case Dr. Prado at 1530 he kindly agreed to admit the patient for observation This note was dictated using [employer] voice recognition software please call with any questions on syntax or grammar.
[2020-04-06] MEDS ORDERED: Ondansetron 4 MG/2 ML SDV IV PRN (15:44)
[2020-04-06] MEDS ORDERED: Sodium Chloride 0.9% 100 ML IV SCH (15:45)
[2020-04-06] MEDS ORDERED: HYDROmorphone 0.5 MG/0.5 ML Syringe IVPUSH PRN (15:45)
[2020-04-06] MEDS: Lactated Ringers 1,000 ML IV SCH (16:15)
[2020-04-06] MEDS: carBAMazepine 100 MG Cap.ER PO SCH (20:42)
[2020-04-07] MEDS: Lactated Ringers 1,000 ML IV SCH ×2 (00:09→07:49)
[2020-04-07] MEDS: Dextrose 5%-Lactated Ringers 1,000 ML IV SCH ×2 (07:53→18:01)
[2020-04-07] MEDS: carBAMazepine 100 MG Cap.ER PO SCH ×2 (09:04→20:46)
[2020-04-07] MEDS: Polyethylene Glycol 3350 Powder 119 GM Bottle PO SCH ×3 (09:04→20:46)
[2020-04-08 05:02] VITALS: BP 126/80; PULSE 68
[2020-04-08] MEDS ORDERED: Lubiprostone 24 MCG Cap PO SCH (08:00)
[2020-04-08] MEDS: carBAMazepine 100 MG Cap.ER PO SCH (08:07)
--- NOTE | 2020-04-08 09:59 | PN ---
DATE OF SERVICE: 04/07/2020 The patient has been admitted overnight with a picture of obstipation. CT scan was fairly unremarkable with some mildly dilated small bowel loops in the lower abdomen and pelvis. Otherwise, she has had no nausea overnight. She has had problems in the past with constipation and has been through the week on getting the bowels going. On evaluation, the patient's abdomen is soft this morning. We will try giving her more or less a colonoscopy prep with MiraLax today 119 g in 32 ounces of Gatorade and Crystal Light x2, and recheck abdominal x-ray tomorrow. Certainly, at this point, there are not any indications for any surgical intervention. Malcom Prado MD /[id number]
--- NOTE | 2020-04-08 10:13 | CR ---
Abdomen 2V AP Flat Upright CLINICAL HISTORY: Follow-up obstruction FINDINGS: No free air is identified. There are scattered air-filled loops of small bowel with some scattered air-fluid levels in the upper abdomen most of this is redundant colon. IMPRESSION: Persistent air-filled loops of small bowel and colon and a nonacute pattern
--- NOTE | 2020-04-08 12:21 | CRLCT ---
Final Report: INDICATION: Generalized abdominal pain. TECHNIQUE: CT of the abdomen and pelvis performed after IV injection of 100 mL of Isovue- 300. FINDINGS: Mild thoracolumbar scoliosis. Moderate osteopenia. Mild linear atelectasis or scarring in the lingula and left lower lobe. Vague sclerosis involving the anterior mid iliac bones symmetrically and bilaterally are indeterminate. Cholecystectomy. Scarring anterior abdominal wall in the midline consistent with prior surgery. Postsurgical changes involving the upper stomach. Hazy increased density in the abdominal mesentery could be related to mild panniculitis. Moderately dilated loops of small bowel in the left lower quadrant with air- fluid levels have a patulous appearance and have postsurgical changes associated with them. The dilatation is likely largely chronic and related to the surgery and/or surgical anastomosis. Hysterectomy. Colonic diverticulosis. Subcutaneous edema in the back and abdominal and pelvic fischer. Abnormal anterior convexity of the mid and upper anterior abdominal wall likely related weakness, postsurgical irregularity, and/or broad-based developing hernia. Postsurgical changes along the cecum. Remainder negative. IMPRESSION: 1. Moderately dilated collection of small bowel loops in the left lower quadrant and left pelvis with air-fluid level have postsurgical changes associated with them and this finding is likely chronic and largely related to the post surgical anastomosis. No abnormalities in the small bowel distal or proximal to this level. 2. Mild panniculitis. 3. Cholecystectomy without significant biliary dilatation. 4. Broad-based small area of anterior convexity in the mid to upper anterior abdominal wall either related to a developing hernia or an area of abdominal wall weakness related to prior surgery. Not mentioned above is a small fat containing hernia in the midline mid to upper anterior abdominal wall superior to this abnormality. 5. Postsurgical changes upper stomach. 6. Hysterectomy. 7. Vague indeterminate areas of sclerosis involving the anterior medially bones symmetrically and bilaterally are indeterminate. Other findings as above. Please note that all CT scans at this facility use dose modulation, iterative reconstruction, and/or weight-based dosing when appropriate to reduce radiation dose to as low as reasonably achievable. Dictated by Rolando Menchaca MD @ Apr 06 2020 3:01PM Signed by: Rolando Menchaca MD @04/06/2020 3:11:26 PM (Electronic Signature) MTDD
--- NOTE | 2020-04-09 06:22 | DISCH ---
ADMISSION DIAGNOSES: 1. Abdominal pain. 2. Obstipation. 3. Obesity. 4. Body mass index 39.2. 5. Trigeminal neuralgia with the left side of the face numb. DISCHARGE DIAGNOSIS: Obstipation, resolved. HISTORY: Alyx Warner is a pleasant 49-year-old female with a history of multiple bowel obstructions resulting in surgery. She developed abdominal pain on 03/30/2020, which did not resolve. On 04/05/2020, she started with home enemas and MiraLAX 119 g. Prior to that, she had drunk a bottle of mag citrate with no results. She presented to the emergency room on 04/06/2020 with abdominal pain and nausea. Pain was in the mid abdomen above the umbilicus to the midepigastric area. After evaluation in the emergency room, she was admitted to the hospital. HOSPITAL COURSE: Alyx was admitted on 04/06/2020. She had abdominal flat and upright x- rays daily. IV was decreased to 100 mL/h. She was given 119 g of MiraLAX b.i.d. and started on Senna Plus 2 tablets b.i.d. Labs were rechecked. Alyx had a full-liquid diet. She had 2905 in, and urine was 950, and she had 14 bowel movements. She was able to be discharged to home in good condition with no abdominal pain on 04/08/2020. REVIEW OF SYSTEMS: CONSTITUTIONAL: She denies any fever, chills, night sweats, or fatigue. HEENT: No headache or sore throat. NECK: Supple and negative for any lymphadenopathy. RESPIRATORY: No cough or shortness of breath. CARDIOVASCULAR: No fast irregular heart beat. No chest pain. GASTROINTESTINAL: No abdominal pain. GENITOURINARY: No UTI signs and symptoms. EXTREMITIES: Negative for joint pain or swelling. NEUROLOGIC: Negative for dizziness or loss of coordination. PSYCHIATRIC: Negative for insomnia, depression, or anxiety. SKIN: Negative for rash. The remainder of the review of systems is negative for any pertinent positives and negatives. PHYSICAL EXAMINATION: GENERAL: Alyx Warner is a pleasant 49-year-old female. VITAL SIGNS: Height is 5 feet 7 inches, and weight is 250 pounds. TPR at 0501 hours; 96.6, 68, and 16. Blood pressure 126/80. HEENT: Negative. NECK: Supple. HEART: Regular rate and rhythm. LUNGS: Clear. ABDOMEN: Soft and nontender. EXTREMITIES: Without peripheral edema. NEUROLOGIC: Cranial nerves II through XII are intact. PSYCHIATRIC: Mood and affect are appropriate. SKIN: Without rash. DISPOSITION: Discharged to home. CONDITION: Stable and improving. FOLLOWUP APPOINTMENT: With Genny Boyd PA-C, on 04/16/2020 at 9 a.m. HOME MEDICATIONS: 1. Linzess 145 mcg oral daily #30, 11 refills. 2. Senna Plus 2 tabs oral at bedtime. She is to resume her home medications of carbamazepine 100 mg oral twice daily. DIET: GI soft, low-residue, low-fiber diet. Drink 8 to 10 glasses of water. ACTIVITY: As tolerated. DISCHARGE INSTRUCTION: Notify provider if any increase in abdominal pain, nausea, or vomiting.
== END 2020-04-08 08:30 | disposition home or self-care (01) ==
LOC: JP.ED 14:55 → JP.MS 15:44
PROVIDERS: ADMIT Surgery; ATTEND Surgery
DX: K59.00 Constipation, unspecified (principal); E66.9 Obesity, unspecified; K21.9 Gastro-esophageal reflux disease without esophagitis; G50.0 Trigeminal neuralgia; Z88.8 Allergy status to other drugs, medicaments and biological substances; Z88.0 Allergy status to penicillin; Z91.048 Other nonmedicinal substance allergy status; Z88.5 Allergy status to narcotic agent; Z79.899 Other long term (current) drug therapy; Z90.49 Acquired absence of other specified parts of digestive tract; Z68.39 Body mass index [BMI] 39.0-39.9, adult
CPT/HCPCS: 36415; 74019; 74177; 80053; 83605; 83735; 84100; 84443; 85025; 85027; 96361; 96374; 99285; A9270; G0378; J2405; J7120; J7121; Q9967

== ENCOUNTER 2024-03-29 15:30 | Emergency (ER) | payer BC ==
[2024-03-29 15:54] VITALS: BP 170/102; PULSE 92
[2024-03-29 16:07] LABS: BASOPHILS ABSOLUTE AUTO 0.07 K/uL (0.00-0.10); BASOPHILS PERCENT AUTO 0.6 % (0.1-1.3); EOSINOPHILS ABSOLUTE AUTO 0.08 K/uL (0.00-0.40); EOSINOPHILS PERCENT AUTO 0.6 % (0.0-5.4); HEMATOCRIT 37.3 % (34.3-46.0); HEMOGLOBIN 12.2 g/dL (11.2-15.5); IMMATURE GRAN ABSOLUTE AUTO 0.05 K/uL (0.00-0.23); IMMATURE GRAN PERCENT AUTO 0.4 % (0.0-0.7); LYMPHOCYTES ABSOLUTE AUTO 2.21 K/uL (0.8-3.3); LYMPHOCYTES PERCENT AUTO 17.4 % (11.4-47.7); MEAN CORPUSCULAR HEMOGLOBIN 27.6 pg (31.6-35.5); MEAN CORPUSCULAR HGB CONC 32.7 g/dL (31.6-35.5); MEAN CORPUSCULAR VOLUME 84.4 fL (81.4-99.0); MONOCYTES ABSOLUTE AUTO 1.09 K/uL (0.20-0.90); MONOCYTES PERCENT AUTO 8.6 % (3.3-12.6); NEUTROPHILS PERCENT AUTO 72.4 % (40.0-78.1); PLATELET COUNT,PLT 250 K/uL (130-375); RED BLOOD CELL COUNT 4.42 M/uL (3.77-5.24); WHITE BLOOD CELL COUNT,WBC 12.7 K/uL (3.2-11.0)
[2024-03-29 16:29] LABS: ANION GAP 10.8 mmol/L (5.0-14.0); CALCIUM 9.1 mg/dL (8.5-10.1); CREATININE 0.6 mg/dL (0.6-1.0); EST CRCL DRUG DOSING (CG) 104.23 mL/min; POTASSIUM,K 3.6 mmol/L (3.6-5.2); TROPONIN I HIGH SENSITIVITY 5.4 pg/mL (<=60.3)
[2024-03-29] MEDS: Sodium Chloride 0.9% 100 ML IV SCH (16:51)
[2024-03-29] MEDS: Iopamidol 755 Mg/ML 100 ML Bottle IV SCH (16:51)
[2024-03-29] MEDS: Sodium Chloride 0.9% 10 ML Syringe FLUSH PRN (16:52)
[2024-03-29] MEDS: LORazepam 2 MG/ML SDV IVPUSH ONE (17:06)
[2024-03-29] MEDS: Ketorolac 15 MG/ML SDV IVPUSH ONE (17:55)
== END 2024-03-29 18:28 | disposition home or self-care (01) ==
LOC: JP.ED 15:30
DX: M62.838 Other muscle spasm (principal); E66.9 Obesity, unspecified; Z88.0 Allergy status to penicillin; Z88.5 Allergy status to narcotic agent; Z88.8 Allergy status to other drugs, medicaments and biological substances; Z79.899 Other long term (current) drug therapy; Z90.49 Acquired absence of other specified parts of digestive tract; Z90.710 Acquired absence of both cervix and uterus; Z68.41 Body mass index [BMI] 40.0-44.9, adult
CPT/HCPCS: 36415; 71275; 80048; 84484; 85025; 93005; 96374; 96375; 99285; J1885; J2060; J3490; Q9967

== ENCOUNTER 2024-04-11 06:33 | Day surgery (SDC) | payer BC ==
[2024-04-11] MEDS ORDERED: Propofol 200 MG/20 ML SDV ONE ×2 (07:15→07:58)
[2024-04-11] MEDS ORDERED: Midazolam 1 MG/ML 2 ML SDV ONE (07:15)
[2024-04-11] MEDS ORDERED: fentaNYL 50 MCG/ML SDV ONE (07:15)
[2024-04-11] MEDS: Sodium Chloride 0.9% 1,000 ML IV SCH (07:24)
[2024-04-11 09:19] VITALS: BP 136/89; PULSE 78
== END 2024-04-11 09:30 | disposition home or self-care (01) ==
LOC: JP.SDS 06:33
PROVIDERS: ATTEND Surgery
DX: Z12.11 Encounter for screening for malignant neoplasm of colon (principal); D12.4 Benign neoplasm of descending colon; F41.9 Anxiety disorder, unspecified
CPT/HCPCS: 00811; 45380; 45385; J2250; J2704; J3010; J7030; 88305